=== PATIENT | female | born 1995 ===

== ENCOUNTER 2017-09-29 17:27 | Emergency (ER) | payer SELFPAY ==
[2017-09-29 17:45] VITALS: O2SAT 100
--- NOTE | 2017-09-29 18:31 | RAD ---
HISTORY: cough COMPARISON: None available. TECHNIQUE: Chest PA and lateral FINDINGS: Examination limited by habitus. LUNGS: No focal consolidation. Please note that chest x-ray has limited sensitivity for the detection of pulmonary masses. PLEURA: No significant pleural effusion identified. No definite pneumothorax . CARDIOVASCULAR: Heart size appears within normal limits. OSSEOUS STRUCTURES: No acute osseous abnormality identified. VISUALIZED UPPER ABDOMEN: Unremarkable. OTHER FINDINGS: None. IMPRESSION: No focal consolidation, significant pleural effusion, or definite pneumothorax identified.
--- NOTE | 2017-09-29 19:00 | C.PDOC ---
History Of Present Illness 22 year old female presents to the ED c/o sore throat, mild dry cough for the past 3 days. Patient reports she is 4 months and is currently . Patient denies fever, chills, nausea, vomit, diarrhea, abdominal pain, recent travel, sick contacts. Time Seen by Provider: 09/29/17 18:21 Chief Complaint (Nursing): ENT Problem History Per: Patient History/Exam Limitations: None Onset/Duration Of Symptoms: Days Current Symptoms Are (Timing): Still Present Anticoagulant/Antiplatlet Use?: No Recent Aspirin Use: No Past Medical History Reviewed: Historical Data, Nursing Documentation, Vital Signs Vital Signs: Last Vital Signs Temp 98.5 F 09/29/17 19:22 Pulse 86 09/29/17 19:22 Resp 18 09/29/17 19:22 BP 126/87 09/29/17 19:22 Pulse Ox 100 09/29/17 19:22 - Medical History PMH: No Chronic Diseases Surgical History: No Surg Hx Family History: States: Unknown Family Hx - Social History Hx Alcohol Use: No Hx Substance Use: No - Immunization History Hx Tetanus Toxoid Vaccination: Yes Hx Influenza Vaccination: Yes (2017) Hx Pneumococcal Vaccination: No Review Of Systems Constitutional: Negative for: Fever, Chills ENT: Positive for: Throat Pain Cardiovascular: Negative for: Chest Pain Respiratory: Positive for: Cough. Negative for: Shortness of Breath Gastrointestinal: Negative for: Nausea, Vomiting, Abdominal Pain Skin: Negative for: Rash Neurological: Negative for: Weakness, Numbness Physical Exam - Physical Exam Appears: Non-toxic, No Acute Distress Skin: Normal Color, Warm, Dry Head: Atraumatic, Normacephalic Eye(s): bilateral: Normal Inspection Nose: No Discharge, No Deformity Oral Mucosa: Moist Throat: Erythema, Exudate (mild) Neck: Normal ROM, Supple Chest: Symmetrical Cardiovascular: Rhythm Regular, No Murmur Respiratory: Normal Breath Sounds, No Rales, No Rhonchi, No Wheezing Neurological/Psych: Oriented x3, Normal Speech, Normal Cognition Gait: Steady ED Course And Treatment O2 Sat by Pulse Oximetry: 100 (On RA) Pulse Ox Interpretation: Normal - Radiology CXR: Viewed By Me, Read By Radiologist CXR Interpretation: Yes: Other (No focal consolidation, significant pleural effusion, or definite pneumothorax identified.) Medical Decision Making Medical Decision Making: Impression : sore throat, dry cough Plan: * Amoxicillin 500 mg PO * Motrin 400 mg PO * CXR Patient states she feels better, will d/c home with abx prescription. Disposition - Disposition Disposition: HOME/ ROUTINE Disposition Time: 18:45 Condition: STABLE Additional Instructions: Follow up with your PMD within 1-2 days. Return to ED if feel worse. Prescriptions: Amoxicillin 500 mg PO Q8 #30 tab Ibuprofen [Motrin Tab] 600 mg PO Q8 #30 tab Forms: [employer] (Thai) - Clinical Impression Clinical Impression: Pharyngitis - PA / [employer] / Resident Statement MD/DO has reviewed & agrees with the documentation as recorded. - Scribe Statement The provider has reviewed the documentation as recorded by the Scribe Anthony Bryant All medical record entries made by the Scribe were at my direction and personally dictated by me. I have reviewed the chart and agree that the record accurately reflects my personal performance of the history, physical exam, medical decision making, and the department course for this patient. I have also personally directed, reviewed, and agree with the discharge instructions and disposition.
[2017-09-29 19:23] VITALS: BP 126/87; PULSE 86; RESP 18; TEMP 98.5
== END 2017-09-29 19:33 | disposition home or self-care (01) ==
LOC: C.ER 17:27
DX: J02.9 Acute pharyngitis, unspecified (principal)